=== PATIENT | male | born 1990 | race Caucasian/White ===

== ENCOUNTER 2019-09-30 16:45 | Emergency (ER) | payer SELFPAY ==
[2019-09-30] MEDS ORDERED: Sodium Chloride 0.9% 1,000 ML IV ONE (17:13)
[2019-09-30] MEDS ORDERED: Sodium Chloride 0.9% 10 ML Syringe FLUSH PRN (17:13)
[2019-09-30] MEDS ORDERED: Alum Hydrox/Mag Hydrox/Simeth 30 ML, Lidocaine 2% 15 ML PO ONE ×2 (17:26)
[2019-09-30] MEDS ORDERED: LORazepam 2 MG/ML SDV IVPUSH ONE (17:26)
--- NOTE | 2019-09-30 18:12 | EDM.PDOC ---
ED HPI GENERAL MEDICAL PROBLEM - General Chief Complaint: Chest Pain Stated Complaint: COUGH AND CONGESTION Time Seen by Provider: 09/30/19 16:55 Source of Information: Reports: Patient, RN Notes Reviewed History Limitations: Reports: No Limitations - History of Present Illness INITIAL COMMENTS - FREE TEXT/NARRATIVE: Patient is a 29-year-old male who presents to the ED for the evaluation of his chest pain. The patient notes that he smoked meth around 6 AM this morning, also took 30 mg of Adderall and 1 tablet of Percocet. Patient states that he developed chest pain/burning with a tingling feeling that radiates to his left arm. Patient denies any sort of cough, but states he does have a little bit of shortness of breath with this, he further denies any nausea/vomiting/diarrhea. Patient notes that he is also had some issues with swollen lymph nodes, inguinal and under his chin for the last couple weeks. Patient denies any sort of feelings of fatigue that he has been having. Patient denies any dysuria, urinary frequency urgency or any discharge. Patient presents to the ER for the evaluation of his chest pain, as he was seriously scared something was going on in his heart and lungs. He states that he smokes cigarettes, he does not use alcohol, and that he has been using drugs for around 13 years now. Left Chest Pain Score (Numeric/FACES): 8 Left Neck Pain Score (Numeric/FACES): 8 - Related Data Allergies Allergy/AdvReac Type Severity Reaction Status Date / Time No Known Allergies Allergy Verified 05/04/19 04:42 Home Meds: Home Meds . [No Known Home Meds] 09/30/19 [History] Past Medical History Respiratory History: Reports: Asthma Social & Family History - Tobacco Use Smoking Status *Q: Current Every Day Smoker Years of Tobacco use: 10 Packs/Tins Daily: 1 - Caffeine Use Caffeine Use: Reports: Coffee - Recreational Drug Use Recreational Drug Use: Yes Recreational Drug Type: Reports: Methamphetamine, Oxycodone, Other (see below) Other Recreational Drug Type: adderral and percocet ED ROS GENERAL - Review of Systems Review Of Systems: See Below Constitutional: Denies: Fever, Chills, Fatigue Respiratory: Reports: Shortness of Breath. Denies: Cough Cardiovascular: Reports: Chest Pain (chest burning/tingling). Denies: Palpitations GI/Abdominal: Denies: Abdominal Pain, Nausea, Vomiting Musculoskeletal: Reports: Arm Pain (Left arm pain/tingling) ED EXAM, GENERAL - Physical Exam Exam: See Below Exam Limited By: No Limitations General Appearance: Alert, WD/WN, No Apparent Distress Eye Exam: Bilateral Eye: EOMI, Normal Inspection, PERRL Ears: Normal External Exam Throat/Mouth: Normal Inspection, Normal Lips, Normal Teeth, Normal Gums, Normal Oropharynx, Normal Voice, No Airway Compromise Head: Atraumatic, Normocephalic Neck: Normal Inspection, Supple, Non-Tender, Full Range of Motion. No: Lymphadenopathy (L), Lymphadenopathy (R) Respiratory/Chest: No Respiratory Distress, Lungs Clear, Normal Breath Sounds, No Accessory Muscle Use, Chest Non-Tender Cardiovascular: Normal Peripheral Pulses, No Murmur, Tachycardia (regular) Peripheral Pulses: 3+: Radial (L), Radial (R) GI/Abdominal: Normal Bowel Sounds, Soft, Non-Tender, No Distention, No Mass Extremities: Normal Inspection, Normal Capillary Refill Neurological: Alert, Oriented, Normal Cognition, No Motor/Sensory Deficits Psychiatric: Normal Affect, Anxious Skin Exam: Warm, Dry, Intact, Normal Color Lymphatic: Adenopathy (bilateral inguinal nodes are palpable) EKG INTERPRETATION EKG Date: 09/30/19 Time: 17:20 Rhythm: NSR Rate (Beats/Min): 92 [place]: Normal P-Wave: Present QRS: Normal ST-T: Normal QT: Prolonged (minimally) Comparison: NA - No Prior EKG EKG Interpretation Comments: Reviewed by myself and Dr. Tavarez. Course - Vital Signs Last Recorded V/S: Last Vital Signs Temp 97.5 F 09/30/19 16:59 Pulse 113 H 09/30/19 16:59 Resp 15 09/30/19 16:59 BP 132/91 H 09/30/19 16:59 Pulse Ox 100 09/30/19 16:59 - Orders/Labs/Meds Orders: Active Orders 24 hr Category Date Time Status EKG Documentation Completion [RC] ASDIRECTED Care 09/30/19 16:58 Active Peripheral IV Care [RC] . DIRECTED Care 09/30/19 17:13 Ordered Sodium Chloride 0.9% [Saline Flush] Med 09/30/19 17:13 Ordered 10 ml FLUSH ASDIRECTED PRN Peripheral IV Insertion Adult [OM.PC] Stat Oth 09/30/19 17:13 Ordered EKG 12 Lead [EK] Stat Ther 09/30/19 16:58 Ordered Medication Orders Sodium Chloride (Saline Flush) 10 ml FLUSH ASDIRECTED PRN PRN Reason: Keep Vein Open Last Admin: 09/30/19 19:09 Dose: 10 ml Labs: Laboratory Tests 09/30/19 09/30/19 09/30/19 Range/Units 17:15 17:15 17:15 WBC 5.48 (4.23-9.07) K/mm3 RBC 5.39 (4.63-6.08) M/mm3 Hgb 15.7 (13.7-17.5) gm/dl Hct 46.6 (40.1-51.0) % MCV 86.5 (79.0-92.2) fl MCH 29.1 (25.7-32.2) pg MCHC 33.7 (32.2-35.5) g/dl RDW Std Deviation 38.5 (35.1-43.9) fL Plt Count 278 (163-337) K/mm3 MPV 10.2 (9.4-12.3) fl Neutrophils % (Manual) 35 L (40-60) % Band Neutrophils % 1 (0-10) % Lymphocytes % (Manual) 53 H (20-40) % Atypical Lymphs % 0 % Monocytes % (Manual) 11 H (2-10) % Eosinophils % (Manual) 0 L (0.8-7.0) % Basophils % (Manual) 0 L (0.2-1.2) Platelet Estimate Adequate RBC Morph Comment Normal Sodium 142 (136-145) mEq/L Potassium 3.8 (3.5-5.1) mEq/L Chloride 104 (98-107) mEq/L Carbon Dioxide 32 (21-32) mEq/L Anion Gap 9.8 (5-15) BUN 16 (7-18) mg/dL Creatinine 1.0 (0.7-1.3) mg/dL Est Cr Clr Drug Dosing 110.96 mL/min Estimated GFR (MDRD) > 60 (>60) mL/min BUN/Creatinine Ratio 16.0 (14-18) Glucose 93 (74-106) mg/dL Calcium 9.1 (8.5-10.1) mg/dL Total Bilirubin 0.5 (0.2-1.0) mg/dL AST 29 (15-37) U/L ALT 68 H (16-63) U/L Alkaline Phosphatase 123 H (46-116) U/L Troponin I < 0.017 (0.00-0.056) ng/mL Total Protein 8.1 (6.4-8.2) g/dl Albumin 3.9 (3.4-5.0) g/dl Globulin 4.2 gm/dL Albumin/Globulin Ratio 0.9 L (1-2) Monoscreen Negative (NEGATIVE) HIV-1 Ab Rapid Screen Negative (NEGATIVE) Meds: Medications Generic Name Dose Route Start Last Admin Trade Name Freq PRN Reason Stop Dose Admin Sodium Chloride 10 ml 09/30/19 17:13 09/30/19 19:09 Saline Flush FLUSH 10 ml ASDIRECTED PRN Administration Keep Vein Open Discontinued Medications Generic Name Dose Route Start Last Admin Trade Name Freq PRN Reason Stop Dose Admin Al Hydroxide/Mg Hydroxide 30 0 ml 09/30/19 17:26 09/30/19 19:09 ml/ Lidocaine HCl 15 ml PO 09/30/19 17:27 45 ml ONETIME ONE Administration Sodium Chloride 1,000 mls @ 999 mls/hr 09/30/19 17:13 09/30/19 19:08 Normal Saline IV 09/30/19 18:13 999 mls/hr ONETIME ONE Administration Lorazepam 1 mg 09/30/19 17:26 09/30/19 19:09 Ativan IVPUSH 09/30/19 17:27 1 mg ONETIME ONE Administration - Re-Assessments/Exams Free Text/Narrative Re-Assessment/Exam: 09/30/19 18:12 Patient presents to the ED for evaluation of chest pain after meth use. Due to his history of drug use, I will screen him for HIV, patient did get an EKG, troponin, some IV fluids, CBC, CMP and 1 mg Ativan with some monoscreen as well. Patient's EKG demonstrates normal sinus rhythm at 92 bpm, but the QTC is minimally prolonged as noted by Dr. Tavarez. Labs have started to result, troponin is negative, CBC is unremarkable, metabolic panel is mostly unremarkable except for minimally elevated ALP and ALT 09/30/19 18:20 Patient's mono screen and HIV screen are also negative at this time. 09/30/19 18:32 I did speak with the patient regarding his lab results, and he mentions that he was seen at the walk-in clinic last week and diagnosed with syphilis, but he did get the treatment for this. He was supposed to have a follow-up exam done, but he has not heard from the walk-in clinic. I will caution him to talk with him tomorrow for follow-up management as a should deem fit. At this moment the ER has been busy, the patient has not been given his IV fluids and Ativan, he seems to be aware that this was anxiety/drug-induced. However I still would like to get him the medications before discharge. Departure - Departure Time of Disposition: 19:15 Disposition: Home, Self-Care 01 Condition: Fair Clinical Impression: Atypical chest pain, Methamphetamine use Instructions: Nonspecific Chest Pain, [id number], Stimulant Use Disorder- Methamphetamines Referrals: PCP,None [Primary Care Provider] - Forms: ED Department Discharge Additional Instructions: You were evaluated in the ER today regarding your chest pain. Your symptoms are most likely due to your methamphetamine use, this can cause feelings of anxiety, with associated chest pain. Laboratory evaluation shows no strain on the heart, your EKG was also within normal limits. We did test you for mononucleosis and HIV, due to your lymphadenopathy and history of drug use and both of these were negative. Please follow-up with the walk-in clinic regarding your recent syphilis treatment, you can get re-evaluated by them, as they were the ones who provided you the treatment. Please try to refrain from drug use, as this seems to be causing you most of your symptoms. Please return to the ER at any time if your symptoms change or worsen. Sepsis Event Note - Evaluation Sepsis Screening Result: No Definite Risk - Focused Exam Vital Signs: Vital Signs Temp Pulse Resp BP Pulse Ox 09/30/19 16:59 97.5 F 113 H 15 132/91 H 100 Date Exam was Performed: 09/30/19 Time Exam was Performed: 19:15 - My Orders Last 24 Hours: My Active Orders 09/30/19 16:58 EKG Documentation Completion [RC] ASDIRECTED EKG 12 Lead [EK] Stat 09/30/19 17:13 Peripheral IV Care [RC] . DIRECTED Sodium Chloride 0.9% [Saline Flush] 10 ml FLUSH ASDIRECTED PRN Peripheral IV Insertion Adult [OM.PC] Stat - Assessment/Plan Last 24 Hours: My Active Orders 09/30/19 16:58 EKG Documentation Completion [RC] ASDIRECTED EKG 12 Lead [EK] Stat 09/30/19 17:13 Peripheral IV Care [RC] . DIRECTED Sodium Chloride 0.9% [Saline Flush] 10 ml FLUSH ASDIRECTED PRN Peripheral IV Insertion Adult [OM.PC] Stat
== END 2019-09-30 19:57 | disposition home or self-care (01) ==
LOC: JD.ED 16:45
DX: R07.89 Other chest pain (principal); F15.90 Other stimulant use, unspecified, uncomplicated; J45.909 Unspecified asthma, uncomplicated; F17.210 Nicotine dependence, cigarettes, uncomplicated
CPT/HCPCS: 36415; 80053; 84484; 85007; 85027; 86308; 87449; 93005; 96361; 96374; 99285; A9270; J2060; J7030; 93010; 99284; G0433

== ENCOUNTER 2021-04-25 18:57 | Emergency (ER) | payer SELFPAY ==
[2021-04-25] MEDS ORDERED: Sulfamethoxazole/Trimethoprim 800-160 MG Tab PO ONE (19:48)
--- NOTE | 2021-04-25 19:57 | EDM.PDOC ---
ED HPI GENERAL MEDICAL PROBLEM - General Chief Complaint: Lower Extremity Injury/Pain Stated Complaint: LEFT LEG RED AND SWOLLEN Time Seen by Provider: 04/25/21 19:35 Source of Information: Reports: Patient, RN Notes Reviewed - History of Present Illness INITIAL COMMENTS - FREE TEXT/NARRATIVE: 30 yr old male bruised L lower ant. leg about 5 days ago. Leg is swollen, bruised ant. and medial R lower leg. Also has a couple of inflamed scratched sores R lower lat leg. No pain with walking. No posterior leg swelling, pain, redness and no chest pain or difficulty breathing. Mostly worried about "blood clots" Treatments KETTLE HAND: Reports: Acetaminophen Left Leg Pain Score (Numeric/FACES): 6 - Related Data Allergies Allergy/AdvReac Type Severity Reaction Status Date / Time No Known Allergies Allergy Verified 04/25/21 19:29 Home Meds: Home Meds Mupirocin Oint [Bactroban Oint] 22 gm .XX Q12HR #1 gm 04/25/21 [Rx] Sulfamethoxazole/Trimethoprim [Bactrim Ds Tablet] 1 each PO Q12HR #14 tablet 04/25/21 [Rx] Past Medical History - Past Health History Medical/Surgical History: Denies Medical/Surgical History HEENT History: Reports: None Cardiovascular History: Reports: None Respiratory History: Reports: Asthma Gastrointestinal History: Reports: None Genitourinary History: Reports: None Musculoskeletal History: Reports: Fracture Neurological History: Reports: None Psychiatric History: Reports: Addiction, Depression Endocrine/Metabolic History: Reports: None Hematologic History: Reports: None Immunologic History: Reports: None Oncologic (Cancer) History: Reports: None Dermatologic History: Reports: Eczema - Infectious Disease History Infectious Disease History: Reports: None Social & Family History - Family History Family Medical History: No Pertinent Family History - Tobacco Use Tobacco Use Status *Q: Current Every Day Tobacco User Years of Tobacco use: 10 Packs/Tins Daily: 0.5 - Caffeine Use Caffeine Use: Reports: Coffee - Recreational Drug Use Recreational Drug Use: Yes Recreational Drug Type: Reports: Methamphetamine Review of Systems - Review of Systems Review Of Systems: See Below Constitutional: Denies: Chills, Fever Cardiovascular: Denies: Chest Pain GI/Abdominal: Reports: No Symptoms Musculoskeletal: Reports: Leg Pain (minimal ant. leg to touch) Skin: Reports: Bruising Neurological: Denies: Numbness, Tingling ED EXAM, GENERAL - Physical Exam Exam: See Below General Appearance: Alert, No Apparent Distress Head: Atraumatic Neck: Supple Respiratory/Chest: No Respiratory Distress Extremities: Redness (mild around some scratch lesions R lower lat leg), Other (No bony pain, no pain with torsion, no pain walking, back of leg nontender and back of leg not swelling, there is mild swelling and bruising ant lower L leg) Neurological: Alert, Oriented, No Motor/Sensory Deficits Skin Exam: Warm, Dry Course - Vital Signs Last Recorded V/S: Last Vital Signs Temp 97.0 F 04/25/21 19:26 Pulse 84 04/25/21 19:26 Resp 16 04/25/21 19:26 BP 135/89 04/25/21 19:26 Pulse Ox 100 04/25/21 19:26 - Orders/Labs/Meds Meds: Medications Discontinued Medications Generic Name Dose Route Start Last Admin Trade Name Freq PRN Reason Stop Dose Admin Trimethoprim/Sulfamethoxazole 1 tab 04/25/21 19:48 Sulfamethoxazole/Trimethoprim 800-160 Mg Tab PO 04/25/21 19:49 ONETIME ONE - Re-Assessments/Exams Free Text/Narrative Re-Assessment/Exam: 04/25/21 20:02 X rays or US not clinically indicated at this time. Pt and his are good with that. Departure - Departure Time of Disposition: 19:54 Disposition: Home, Self-Care 01 Condition: Fair Clinical Impression: Wound infection Contusion of leg, left Qualifiers: Encounter type: initial encounter Qualified Code(s): S80.12XA - Contusion of left lower leg, initial encounter - Discharge Information Prescriptions: Sulfamethoxazole/Trimethoprim [Bactrim Ds Tablet] 1 each PO Q12HR #14 tablet Mupirocin Oint [Bactroban Oint] 22 gm .XX Q12HR #1 gm Referrals: PCP,None [Primary Care Provider] - Forms: ED Department Discharge Additional Instructions: Bactroban ointment twice daily for 10 days or until wounds have healed. Bactrim DS twice daily for 1 week or until gone. Prescriptions have been sent to [facility] up at the [facility] store, can be picked up tomorrow morning. Return to ED as needed if pain, swelling, redness moves to back of leg as discussed. Sepsis Event Note (ED) - Evaluation Sepsis Screening Result: No Definite Risk - Focused Exam Vital Signs: Vital Signs Temp Pulse Resp BP Pulse Ox 04/25/21 19:26 97.0 F 84 16 135/89 100
== END 2021-04-25 20:09 | disposition home or self-care (01) ==
LOC: JD.ED 18:57
DX: T81.40XA Infection following a procedure, unspecified, initial encounter (principal); S80.12XA Contusion of left lower leg, initial encounter; Z72.0 Tobacco use; W22.8XXA Striking against or struck by other objects, initial encounter
CPT/HCPCS: 99283; A9270

== ENCOUNTER 2022-07-25 22:20 | Emergency (ER) | payer SELFPAY ==
[2022-07-26 00:44] LABS: CORONAVIRUS COVID-19 NAA POSITIVE (NEGATIVE)
== END 2022-07-26 00:02 | disposition home or self-care (01) ==
LOC: JD.ED 22:20
DX: U07.1 COVID-19 (principal); J06.9 Acute upper respiratory infection, unspecified; F17.210 Nicotine dependence, cigarettes, uncomplicated
CPT/HCPCS: 0240U; 99284